=== PATIENT | male | born 1995 | race Caucasian/White ===

== ENCOUNTER 2016-06-20 03:14 | Emergency (ER) | payer SELFPAY ==
[~2016-06-20] VITALS: Ht 177.8 cm; Wt 97.0 kg
[2016-06-20 04:00] LABS: HEMATOCRIT 43.6 % (38.0-50.0); MCH 31.1 PG (29.0-34.0); MCHC 34.6 G/DL (30.0-36.0); MCV 89.9 FL (86-99); MEAN PLAT.VOLUME 10.2 uM^3 (9.0-12.4); PLATELET COUNT 144 K/uL (156-360); RBC DIS.WIDTH-CV 12.4 % (11.8-14.6); RBC DIS.WIDTH-SD 39.9 % (39-53); RED BLOOD COUNT 4.85 M/uL (4.00-5.50); WHITE BLOOD COUNT 2.8 K/uL (4.1-10.2)
[2016-06-20 04:08] LABS: CHLORIDE 101 mEq/L (99-109); POTASSIUM 3.8 mEq/L (3.7-5.4); SODIUM 136 mEq/L (136-147)
[2016-06-20 04:10] LABS: GLUCOSE 124 mg/dL (70-99)
[2016-06-20 04:11] LABS: ANION GAP 14 MEQ/L (2-14)
[2016-06-20 04:14] LABS: GFR ESTIMATE (CALCULATED) > 59 mL/min/
[2016-06-20 04:16] LABS: UREA NITROGEN (BUN) 13 mg/dL (9-23)
[2016-06-20 04:17] LABS: SALICYLATE < 5.0 MG/DL (15-30)
[2016-06-20] MEDS ORDERED: TAMIFLU75 MG PO (04:27)
[2016-06-20 05:04] VITALS: BP 162/82
== END 2016-06-20 05:05 | disposition home or self-care (01) ==
LOC: EME 03:14
PROVIDERS: Emergency Medicine
DX: J11.1 Influenza due to unidentified influenza virus with other respiratory manifestations (principal); R10.9 Unspecified abdominal pain; R11.2 Nausea with vomiting, unspecified; F17.200 Nicotine dependence, unspecified, uncomplicated
CPT/HCPCS: 71020; 80048; 85027; 93005; 99281; 99284; G0480; J2405; J7030

== ENCOUNTER 2016-11-05 02:30 | Emergency (ER) | payer SELFPAY ==
[~2016-11-05] VITALS: Ht 177.8 cm; Wt 103.2 kg
[~2016-11-05 02:30] MED LIST: TAMIFLU75 MG PO
[2016-11-05 03:30] LABS: ADD MIUA? NO; BILIRUBIN NEGATIVE; BLOOD NEGATIVE; COLOR STRAW ((YELLOW)); GLUCOSE (STRIP) NEGATIVE; KETONES NEGATIVE; LEUKOCYTES NEGATIVE; NITRITE NEGATIVE; PROTEIN (STRIP) NEGATIVE; UCUL ADDED? NO; UROBILINOGEN 0.2 MG/DL (0.2-1.0)
[2016-11-05 03:42] LABS: HEMATOCRIT 45.8 % (38.0-50.0); MCH 29.5 PG (29.0-34.0); MCHC 33.6 G/DL (30.0-36.0); MCV 87.7 FL (86-99); MEAN PLAT.VOLUME 10.5 uM^3 (9.0-12.4); PLATELET COUNT 221 K/uL (156-360); RBC DIS.WIDTH-CV 11.9 % (11.8-14.6); RBC DIS.WIDTH-SD 38.2 % (39-53); RED BLOOD COUNT 5.22 M/uL (4.00-5.50); WHITE BLOOD COUNT 8.9 K/uL (4.1-10.2)
[2016-11-05 03:56] LABS: D-DIMER ELISA < 0.15 mg/L FEU (< 0.57)
[2016-11-05 04:00] LABS: CHLORIDE 104 mEq/L (99-109); POTASSIUM 4.2 mEq/L (3.7-5.4); SODIUM 142 mEq/L (136-147)
[2016-11-05 04:02] LABS: GLUCOSE 107 mg/dL (70-99)
[2016-11-05 04:04] LABS: ANION GAP 9 MEQ/L (2-14); TOTAL BILIRUBIN 0.4 mg/dL (0.0-1.0)
[2016-11-05 04:06] LABS: ALKALINE PHOSPHATASE 66 IU/L (3-129); GFR ESTIMATE (CALCULATED) > 59 mL/min/
[2016-11-05 04:07] LABS: TROP-I INTERPRETATION NEGATIVE; TROPONIN-I < 0.01 ng/mL (0.0-0.30); UREA NITROGEN (BUN) 12 mg/dL (9-23)
[2016-11-05 04:09] LABS: LIPASE 21 U/L (1.0-51.0)
[2016-11-05 04:57] VITALS: BP 130/82
== END 2016-11-05 04:58 | disposition home or self-care (01) ==
LOC: EME 02:30
PROVIDERS: Emergency Medicine
DX: R07.89 Other chest pain (principal); R20.2 Paresthesia of skin; F17.200 Nicotine dependence, unspecified, uncomplicated
CPT/HCPCS: 71020; 80053; 81003; 83690; 84443; 84484; 85027; 85379; 93005; 99281; 99283